=== PATIENT | female | born 1985 | race Caucasian/White ===

== ENCOUNTER 2018-12-01 13:30 | Emergency (ER) | payer SELFPAY ==
[~2018-12-01] VITALS: Ht 162.6 cm; Wt 59.0 kg
[2018-12-01] MEDS ORDERED: ONDANSETRON HCL 4MG/2ML INJ IV STA (14:43)
[2018-12-01] MEDS ORDERED: SODIUM CHLORIDE 0.9% 1,000 ML IV ONE (14:43)
[2018-12-01 16:27] LABS: BASOPHILS % 0.7 % (0.0-2.0); EOSINOPHILS % 9.5 % (0.0-5.0); HEMATOCRIT. 38.1 % (36.0-48.0); HEMOGLOBIN. 12.6 g/dL (12.0-16.0); LYMPHOCYTES % 26.7 % (20.0-50.0); MEAN CORPUSCULAR HEMOGLOBIN 26.5 pg (28.0-32.0); MEAN CORPUSCULAR VOLUME 79.9 fL (81.0-99.0); MEAN PLATELET VOLUME 7.7 fl (7.4-10.4); MONOCYTES % 6.4 % (2.0-8.0); NEUTROPHILS % 56.7 % (40.0-76.0); PLATELET 429 x1000/uL (130-400); RED BLOOD CELL COUNT 4.77 mill/uL (4.2-5.4); RED CELL DISTRIBUTION WIDTH 17.4 % (11.6-14.6)
[2018-12-01 16:40] LABS: CHLORIDE 108 mEq/L (98-107)
[2018-12-01 16:45] LABS: ETHANOL BLOOD < 10 mg/dL; HCG SCREEN NEGATIVE
[2018-12-01 17:19] LABS: CLARITY URINE CLEAR (CLEAR); COLOR URINE YELLOW (YELLOW); KETONES URINE 1+ (NEGATIVE); LEUKOCYTE ESTERASE URINE NEGATIVE (NEGATIVE); NITRITE URINE NEGATIVE (NEGATIVE); OCCULT BLOOD URINE NEGATIVE (NEGATIVE); PH URINE 7.5 (4.5-8.0); PROTEIN URINE NEGATIVE (NEGATIVE); SPECIFIC GRAVITY URINE 1.006 (1.005-1.030); UROBILINOGEN URINE 0.2 E.U./dL (0.2-1.0)
[2018-12-01] MEDS ORDERED: POTASSIUM CHLORIDE 20MEQ TABLET SR PO ONE (17:30)
[2018-12-01 17:52] LABS: *BARBITURATES SCREEN URINE NEGATIVE (NEGATIVE); *BENZODIAZEPINES SCREEN URINE NEGATIVE (NEGATIVE); *COCAINE SCREEN URINE NEGATIVE (NEGATIVE); METHADONE URINE SCREEN NEGATIVE (NEGATIVE); OPIATES URINE SCREEN NEGATIVE (NEGATIVE); PHENCYCLIDINE URINE SCREEN NEGATIVE (NEGATIVE)
[2018-12-01 17:53] LABS: *AMPHETAMINES SCREEN URINE PRESUMTIVE POSITIVE (NEGATIVE); CANNABINOID URINE SCREEN NEGATIVE (NEGATIVE)
[2018-12-01 18:06] VITALS: BP 111/80
== END 2018-12-01 19:12 | disposition home or self-care (01) ==
LOC: ER 13:34
DX: R55 Syncope and collapse (principal); E87.6 Hypokalemia; F15.10 Other stimulant abuse, uncomplicated; W01.198A Fall on same level from slipping, tripping and stumbling with subsequent striking against other object, initial encounter; Y93.89 Activity, other specified; Y92.9 Unspecified place or not applicable
CPT/HCPCS: 36415; 70450; 80053; 80305; 81003; 81025; 84484; 84703; 85025; 87186; 93005; 96361; 96374; 99284; J2405; J7030

== ENCOUNTER 2019-04-08 21:28 | Emergency (ER) | payer SELFPAY ==
[~2019-04-08] VITALS: Ht 149.9 cm; Wt 54.0 kg
[2019-04-08] MEDS ORDERED: BACITRACIN ZINC OINT UDPKT TOP ONE (23:00)
[2019-04-08] MEDS ORDERED: TETANUS, DIPHTHERIA, PERTUSSIS VAC/PF 0.5ML (>7YR OLD) IM ONE (23:00)
[2019-04-08] MEDS ORDERED: KETOROLAC 30MG/ML VIAL IM ONE (23:00)
[2019-04-08] MEDS ORDERED: SULFAMETHOXAZOLE/TRIMETHOPRIM 800/160MG TABLET PO ONE (23:00)
[2019-04-08] MEDS ORDERED: MORPHINE SULFATE 10 MG/ML CPJ IM ONE (23:00)
[2019-04-08 23:38] LABS: CHLORIDE 106 mEq/L (98-107)
[2019-04-08 23:39] LABS: BASOPHILS % 0.3 % (0.0-2.0); EOSINOPHILS % 8.2 % (0.0-5.0); HEMATOCRIT. 33.1 % (36.0-48.0); HEMOGLOBIN. 11.4 g/dL (12.0-16.0); LYMPHOCYTES % 13.5 % (20.0-50.0); MEAN CORPUSCULAR HEMOGLOBIN 29.4 pg (28.0-32.0); MEAN CORPUSCULAR VOLUME 85.5 fL (81.0-99.0); MEAN PLATELET VOLUME 7.7 fl (7.4-10.4); MONOCYTES % 7.3 % (2.0-8.0); NEUTROPHILS % 70.7 % (40.0-76.0); PLATELET 357 x1000/uL (130-400); RED BLOOD CELL COUNT 3.88 mill/uL (4.2-5.4); RED CELL DISTRIBUTION WIDTH 18.1 % (11.6-14.6)
[2019-04-08 23:48] LABS: HCG SCREEN NEGATIVE
[2019-04-09] MEDS ORDERED: LORAZEPAM 1MG TABLET PO ONE (00:15)
[2019-04-09 00:46] LABS: CLARITY URINE CLEAR (CLEAR); COLOR URINE YELLOW (YELLOW); KETONES URINE NEGATIVE (NEGATIVE); LEUKOCYTE ESTERASE URINE TRACE (NEGATIVE); NITRITE URINE NEGATIVE (NEGATIVE); OCCULT BLOOD URINE 2+ (NEGATIVE); PROTEIN URINE NEGATIVE (NEGATIVE); SPECIFIC GRAVITY URINE 1.007 (1.005-1.030); UROBILINOGEN URINE 0.2 E.U./dL (0.2-1.0)
[2019-04-09 01:50] VITALS: BP 101/59
== END 2019-04-09 02:55 | disposition home or self-care (01) ==
LOC: EDBD 21:28 → ER 21:28
DX: S30.1XXA Contusion of abdominal wall, initial encounter (principal); S40.812A Abrasion of left upper arm, initial encounter; S80.812A Abrasion, left lower leg, initial encounter; S30.810A Abrasion of lower back and pelvis, initial encounter; I10 Essential (primary) hypertension; F15.10 Other stimulant abuse, uncomplicated; F17.210 Nicotine dependence, cigarettes, uncomplicated; Z90.49 Acquired absence of other specified parts of digestive tract; Z98.890 Other specified postprocedural states; Z88.0 Allergy status to penicillin; V49.88XA Car occupant (driver) (passenger) injured in other specified transport accidents, initial encounter; Y93.89 Activity, other specified; Y92.89 Other specified places as the place of occurrence of the external cause; Y99.8 Other external cause status
CPT/HCPCS: 36415; 71045; 74176; 80053; 81003; 83690; 84703; 85025; 90471; 90715; 96372; 99284; 99406; A4217; J1885; J2270

== ENCOUNTER 2019-05-08 00:29 | Observation (INO) | payer SELFPAY | END 2019-05-08 02:25 | disposition home or self-care (01) | LOC: ER 00:29 → 8 EST LDRP 00:30 | PROVIDERS: ADMIT Obstetrics & Gynecology; ATTEND Obstetrics & Gynecology | DX: O26.852 Spotting complicating pregnancy, second trimester (principal); Z3A.25 25 weeks gestation of pregnancy | CPT/HCPCS: 76801; 99281; G0378 ==